=== PATIENT | female | born 1960 ===

== ENCOUNTER → 2023-10-18 06:46 | Outpatient (REF) | payer BC, SELFPAY | LOC: WDC 06:46 | PROVIDERS: ATTENDING PHYSICIAN Physician Assistant | DX: Z12.31 Encounter for screening mammogram for malignant neoplasm of breast (principal) | CPT/HCPCS: 77063; 77067 ==

== ENCOUNTER 2024-08-25 03:29 | Emergency (ER) | payer BC, SELFPAY ==
[2024-08-25 03:40] VITALS: BP 150/87
[2024-08-25 04:14] VITALS: BP 135/81
[2024-08-25 04:29] VITALS: BMI 29.3
[2024-08-25 04:39] LABS: % Basophils 0.9 % (0-2); % Eosinophils 2.6 % (0-6); % Immature Granulocytes 0.3 % (0-0.5); % Lymphocytes 38.7 % (20.5-51.1); % Monocytes 10.7 % (1.7-9.3); % Neutrophils 46.8 % (42.2-75.2); Absolute Basophils 0.1 10^3/uL (0-0.2); Absolute Eosinophils 0.2 10^3/uL (0-0.7); Absolute Lymphocytes 2.2 10^3/uL (1.2-3.4); Absolute Monocytes 0.6 10^3/uL (0.1-0.6); Absolute Neutrophils 2.7 10^3/uL (1.4-6.5); Hematocrit 37.1 % (37.0-47.0); Hemoglobin 12.6 g/dL (12.0-16.0); Mean Corpuscular Hgb 33.1 pg (27.0-31.0); Mean Corpuscular Volume 97.4 fL (81.0-99.0); Mean Platelet Volume 9.2 fL (7.4-10.4); Nucleated Red Blood Cells % 0 %; Platelet Count 265 10^3/uL (130-400); Red Blood Cell Count 3.81 10^6/uL (4.20-5.40); Red Cell Dist. Width 12.7 % (11.5-14.5); White Blood Cell Count 5.8 10^3/uL (4.8-10.8)
[2024-08-25 04:53] LABS: ALT (SGPT) 20 U/L (0-35); AST (SGOT) 21 U/L (14-36); Albumin 4.3 g/dl (3.5-5.0); Alkaline Phosphatase 48 U/L (38-126); Blood Urea Nitrogen 11 mg/dl (7-17); Calcium 9.4 mg/dl (8.4-10.2); Carbon Dioxide 28 mmol/L (22-30); Chloride 105 mmol/L (98-107); Estimated Creatinine Clearance 105 ml/min; Glucose 96 mg/dl (70-99); Potassium 4.1 mmol/L (3.5-5.1); Sodium 139 mmol/L (135-145); Total Bilirubin 0.4 mg/dl (0.2-1.3); Total Protein 6.7 g/dl (6.3-8.2); eGFR > 60.00
[2024-08-25 05:00] VITALS: BP 130/76
[2024-08-25 05:04] LABS: Troponin I < 0.012 ng/ml
--- NOTE | 2024-08-25 05:40 | ED.GENMED ---
History of Present Illness
General
Chief Complaint: Chest Pain
Source: patient
Exam Limitations: none
Time Seen by Provider: 08/25/24 05:01
Nursing documentation reviewed up to this point in time: agreed with
History of Present Illness
History of Present Illness:
This is a 64-year-old woman with no significant past medical history save for hypothyroidism, maintained on levothyroxine. She complains of at least 2-day history of mild intermittent lower substernal chest discomfort that is most noted when she is
lying down or when she is sitting. No associated symptoms. She denies injury nor fall. Denies heavy lifting. No nausea or vomiting, no coughing or shortness of breath. Chest discomfort is nonradiating. Feels different from her previous
episodes of indigestion which are a rare occurrence.
She denies significant NSAID nor significant alcohol use.
No recent travel.
Past History
Past History
ED Past Medical History: Hypothyroidism
ED Past Surgical History: Orthopedic (Right knee replacement)
Social History
Tobacco: Non-smoker
Alcohol: Occasional
Personal:
Living: with family
Employment: Employed
Family History
Family History: Negative CAD
Phy Exam
Physical Exam
Physical Exam:
GENERAL: Alert , in no apparent distress
EYE: pupils equal and reactive. anicteric
NECK: Supple, nontender, no meningismus, no significant adenopathy.
ENT: oral mucosa is moist. No rhinorrhea.
CARDIAC: Regular rate and rhythm. no murmur. Mild tenderness lower sternal region. Palpation seems to exactly reproduce patient's pain complaint.
LUNGS: Clear breath sounds bilaterally, no acute respiratory distress, no wheezes/rales/rhonchi
ABDOMEN: Soft, nondistended, without focal tenderness, no r/g, no cvat. normoactive BS.
NEUROLOGICAL: Alert and oriented x3, no focal neuro deficits. Gait is barnes and steady.
SKIN: Warm and dry, normal color, skin intact. No rash.
MUSCULOSKELETAL: No C/C/E. peripheral pulses are full and equal b/l. No palpable tenderness.
PSYCH: Normal and appropriate interaction.
Scores
Heart Score for Chest Pain Patients
STEMI patient?: No
History: Slightly or Non-Suspicious
ECG: Normal
Age: >45 - <65 years
Risk Factors: No Risk Factors
Troponin: </= Normal Limit
Heart Score for Chest Pain Patients: 1
Heart Score Risk: 2.5% MACE over next 6 weeks
Course
Orders/Labs/Results
Orders:
Orders
08/25/24 03:30
Electrocardiogram (*1) Urgent
Reason for Study: Chest Pain
EKG- Treatment ONCE
08/25/24 04:22
Complete Blood Count/With Diff Urgent
Comprehensive Metabolic Panel Urgent
Troponin I Urgent
08/25/24 05:31
Pantoprazole [Protonix IV] 40 mg IV NOW STA
Abnormal Lab Results
08/25/24
04:22
RBC 3.81 L 10^6/uL
(4.20-5.40)
MCH 33.1 H pg
(27.0-31.0)
Monocytes % 10.7 H %
(1.7-9.3)
08/25/24 04:22
08/25/24 04:22
Vital Signs
Initial and Last Documented VS:
Initial Vital Signs
Temp Pulse Resp BP Pulse Ox
98.0 F 69 18 150/87 97
08/25/24 03:40 08/25/24 03:40 08/25/24 03:40 08/25/24 03:40 08/25/24 03:40
Last Documented Vital Signs
Temp Pulse Resp BP Pulse Ox
98.0 F 71 24 135/81 96
08/25/24 03:40 08/25/24 04:30 08/25/24 04:30 08/25/24 04:14 08/25/24 04:30
MDM/Problems Addressed
Differential Diagnosis Includes:
Patient presents with 2-day history of intermittent nonradiating lower sternal pain that is worse with sitting, worse with lying supine.
Concern for costochondritis versus GERD, other consideration is ACS however less likely.
No risk factors for thromboembolism. Nothing in history to suggest infectious process/pneumonia, bronchitis.
EKG is unremarkable showing normal sinus rhythm, normal axis, normal intervals, no acute ST-T wave abnormalities.
Labs are unremarkable as well including negative troponin.
With ongoing discomfort for 2 days, normal EKG, normal troponin, ACS is unlikely.
I do suspect either GERD versus costochondritis. Recommend short course of daily Protonix, avoid NSAIDs, alcohol, spicy or fried foods.
May take Tylenol versus limited doses of ibuprofen as needed for pain.
Follow-up with PCP for recheck.
Return precautions discussed.
*Pulse Oximetry
Patient hypoxic: no
*EKG
Interpreted by ED Provider?: Yes
Interpretation: normal
Comparison EKG: no comparison EKG present
Rate: normal
Rhythm: sinus
[place]: normal axis
Interval: normal interval
QRS Pattern: normal QRS
Ischemia: no ischemia
*Laborer General Interpretation
Rate: normal
Interpretation: normal
Rhythm: sinus
*Critical Care Note
Total Time (30-74mins, 75-104mins- exclusive of procedures): Not Applicable
ED Attending Note
-
Portions of this chart may have been created with voice recognition software.� Occasional wrong word or��sound alike� substitutions may have occurred due to the inherent limitations of voice recognition software.
Discharge Plan
Departure
Patient Disposition: Home (Routine Discharge)
Date of Disposition: 08/25/24
Time of Disposition: 05:45
Patient with high blood pressure during this ER visit?: No
Condition: Good
Discharge Problem:
Costochondritis vs GERD
Instructions: Acid Reflux and GERD in Adults (DC), Costochondritis (DC)
Prescriptions:
New
pantoprazole [Protonix] 40 mg tablet,delayed release (DR/EC)
40 mg PO DAILY Qty: 30 0RF
Referrals:
Zena Engel PA-C [Family Provider] - Call in 1-3 days for appt
Interventions
Interventions:
*Risk Screen - Suicide Last Done: 08/25/24 03:41
*General Assessment Last Done: 08/25/24 04:29
*Neglect/Abuse Screening Last Done: 08/25/24 03:41
ED- Fall Risk Assessment Last Done: 08/25/24 04:29
*ED COVID-19 Vaccine History Last Done: 08/25/24 03:39
ED- Cardiac Assessment Last Done: 08/25/24 04:29
Discharge Date and Time
Print Language: MACEDONIAN
[2024-08-25 06:00] VITALS: BP 133/85
[2024-08-25] MEDS: PROTONIX IV 40 MG IV (06:00)
[2024-08-25 06:20] VITALS: BP 126/76
[2024-08-25 06:28] VITALS: BP 126/76
== END 2024-08-25 06:43 | disposition home or self-care (01) ==
LOC: EMR 03:29
PROVIDERS: EMERGENCY PHYSICIAN Emergency Medicine; FAMILY PHYSICIAN Physician Assistant
DX: R07.89 Other chest pain (principal); E03.9 Hypothyroidism, unspecified
CPT/HCPCS: 96374; 99284; 80053; 84484; 85025; 93005

== ENCOUNTER → 2024-10-21 07:18 | Outpatient (REF) | payer BC, SELFPAY | LOC: WDC 07:18 | PROVIDERS: ATTENDING PHYSICIAN Obstetrics & Gynecology; FAMILY PHYSICIAN Physician Assistant | DX: Z12.31 Encounter for screening mammogram for malignant neoplasm of breast (principal) | CPT/HCPCS: 77063; 77067 ==